=== PATIENT | female | born 1935 | race Caucasian/White ===

== ENCOUNTER 2018-11-12 17:30 | Inpatient (IN) | payer MEDICARE ==
[~2018-11-12] VITALS: Ht 152.4 cm; Wt 48.6 kg
[~2018-11-12 17:30] MED LIST: AMLODIPINE BESYL5 MG PO; ASPIRIN EC81 MG PO; LISINOPRIL40 MG PO; METFORMIN HCL1000 MG PO; METOPROLOL TART50 MG PO; NORCO 5-325 TA1 EACH PO; SERTRALINE HCL50 MG PO
[2018-11-12] MEDS ORDERED: GLYCOPYRROLATE INJ 1MG/ 5 ML SYR ONE (17:48)
[2018-11-12] MEDS ORDERED: ONDANSETRON HCL INJ 2 MG/ML VIAL ONE (17:48)
[2018-11-12] MEDS ORDERED: PHENYLEPHRINE HCL 1% 10 MG/ML VIAL ONE (17:48)
[2018-11-12] MEDS ORDERED: CEFAZOLIN SOD 1 GM VIAL ONE (17:48)
[2018-11-12] MEDS ORDERED: LIDOCAINE HCL 2% LOCAL INJ 5 ML SDV VIAL INJ ONE (17:48)
[2018-11-12] MEDS ORDERED: SEVOFLURANE INHAL SOLN 250 ML PEN BTL ONE (17:48)
[2018-11-12] MEDS ORDERED: PROPOFOL IV EMULSION 10 MG/ML 20 ML VIAL ONE (17:48)
[2018-11-12 21:00] VITALS: BP 125/62
--- NOTE | 2018-11-12 21:00 | NUR ---
Patient arrived to the unit via EMS. A&Ox4, respirations even & unlabored, no distress noted. Patient is on bedrest due to fractured left femur & left humerus, splint noted to left shoulder, per MD order 5lb bucks traction placed to left leg. Bruising to left hip, left elbow & left shoulder noted. Sacrum blanchable to touch, alleyvn foam pad placed as preventive measure. IV to right wrist 20g SL, patent & no infiltration noted. Per MD order Russo catheter placed. Patient rates pain level 4/10 to left leg.
--- NOTE | 2018-11-12 21:10 | NUR ---
Spoke w/ Dr. Rapp & Dr. Smith in regards to patient admit. Orders received and placed.
--- OUTSIDE RECORDS SUMMARY | 2018-11-12 21:33 | XMS REPORT ---
Author Author [facility] [place] Address Unknown Phone Unavailable Care Team Providers Care Diet Counselor Name Role Phone Unavailable Unavailable Payers Payer Name Policy Type Policy Number Effective Date Expiration Date Problems This patient has no known problems. Allergies, Adverse Reactions, Alerts Allergy Name Allergy Type Status Severity Reaction(s) Onset Date Inactive Date Treating Clinician Comments No Known Allergies DA Active U 2018-11-12 00:00:00 No Known Allergies DA Active U 2018-02-01 00:00:00 Medications This patient has no known medications.
[2018-11-13] VITALS (8 sets, daily range): BP systolic 107–131; BP diastolic 56–69
[2018-11-13] MEDS: HYDROCODONE/APAP 5MG-325MG TAB PO PRN ×2 (01:00→10:17)
[2018-11-13] MEDS ORDERED: SERTRALINE HCL100 MG PO (04:47)
[2018-11-13] MEDS ORDERED: ATORVASTATIN CA20 MG PO (04:47)
[2018-11-13] MEDS ORDERED: CLOPIDOGREL75 MG PO (04:47)
[2018-11-13] MEDS ORDERED: METFORMIN HCL500 MG PO (04:47)
[2018-11-13] MEDS ORDERED: LISINOPRIL10 MG PO (04:47)
[2018-11-13] MEDS ORDERED: METOPROLOL TART50 MG PO (04:47)
[2018-11-13] MEDS ORDERED: AMLODIPINE BESYL5 MG PO (04:47)
[2018-11-13] MEDS ORDERED: ASPIR 8181 MG PO (04:47)
--- NOTE | 2018-11-13 05:32 | Diagnostic Imaging Report ---
CHEST SINGLE (PORTABLE), 11/13/2018 6:00 AM Technique: CHEST SINGLE (PORTABLE) Comparison: None available. Clinical history: Pneumonia Findings: See Impression. Remote rib deformities. Impression: Limited by portable technique and rotation 1. Enlarged cardiomediastinal silhouette, poorly assessed 2. Retrocardiac opacity, suspected large hiatal hernia seen on prior chest CT. Cannot exclude superimposed or adjacent atelectasis/pneumonia. Recommend follow-up with attention to more centered positioning or upright PA and lateral. Signed by: Dr Emily Cardenas MD on 11/13/2018 5:29 AM
[2018-11-13 05:53] LABS: BASOPHILS % 0.2 % (0.0-1.0); EOSINOPHILS % 0.1 % (0.0-6.0); HEMATOCRIT 29.1 % (34.2-44.1); HEMOGLOBIN 9.4 g/dL (12.0-16.0); LYMPHOCYTES # (AUTO) 0.9 (1.0-3.2); LYMPHOCYTES % 7.1 % (18.0-39.1); MEAN CORPUSCULAR HEMOGLOBIN 28.7 pg (28-32); MEAN CORPUSCULAR HGB CONC 32.3 g/dL (31-35); MEAN CORPUSCULAR VOLUME 88.7 fL (81-99); MONOCYTES # (AUTO) 1.5 (0.2-0.8); MONOCYTES % 11.7 % (4.4-11.3); NEUTROPHILS # (AUTO) 10.1 (2.1-6.9); NEUTROPHILS % 80.3 % (38.7-80.0); PLATELET COUNT 253 x10e3/uL (140-360); RED BLOOD COUNT 3.28 x10e6/uL (3.6-5.1); RED CELL DISTRIBUTION WIDTH 14.9 % (11.7-14.4)
[2018-11-13 06:15] LABS: ALBUMIN 3.4 g/dL (3.5-5.0); ALBUMIN/GLOBULIN RATIO 1.4 (0.8-2.0); ANION GAP 14.6 mmol/L (8-16); CALCIUM 9.3 mg/dL (8.4-10.2); CREATININE, SERUM 1.11 mg/dL (0.57-1.11); POTASSIUM 4.6 mmol/L (3.5-5.1)
--- NOTE | 2018-11-13 07:00 | NUR ---
Received patient semi fowlers position, side rails upx2, call light within reach, bed alarm on. Resting with eyes closed. Arousable to verbal stimuli. Respirations even and unlabored. splint to left arm. bucks traction to LLE. Will continue to monitor.
[2018-11-13] MEDS ORDERED: CEFAZOLIN SOD 1 GM/D5W 50ML 100 ML IV ONE (08:30)
[2018-11-13] MEDS: AMLODIPINE BESYLATE 5 MG TAB PO SCH (08:59)
[2018-11-13] MEDS: METOPROLOL TARTRATE 50 MG TAB PO SCH ×2 (08:59→16:38)
[2018-11-13] MEDS: METFORMIN HCL 500 MG TAB PO SCH ×2 (08:59→16:38)
[2018-11-13] MEDS: LISINOPRIL 10 MG TAB PO SCH ×2 (09:00→16:39)
--- NOTE | 2018-11-13 09:09 | Consultation ---
DATE OF CONSULTATION: November 13, 2018 CHIEF COMPLAINT: Left hip and shoulder pain. HISTORY OF PRESENT ILLNESS: The patient is an 83-year-old lady who fell at home yesterday. She noted the immediate onset of left shoulder and left hip pain. She was initially taken to [facility]. She was transferred to [facility] as she is a previous patient of mine. PAST MEDICAL HISTORY: Please see admission H and P. She had a stroke last spring. She has had a filter placed. She was previously on Eliquis, but is now on Plavix. Her last Plavix dose was yesterday. SOCIAL HISTORY: She lives with her daughter. She has a caregiver. She uses a walker as she walks outside. She uses furniture when she walks inside the house. PHYSICAL EXAMINATION GENERAL: She is a frail 83-year-old lady who has slight confusion. She is supine in bed with 5 pounds of Correa's traction. EXTREMITIES: She has pain with any attempted passive range motion of her left hip. She is in a left shoulder immobilizer. She has pain with any attempted passive range motion of her left shoulder. Neurovascular exam is grossly normal in the left arm and left lower extremity. She has age-related diminished muscle definition and strength. LABORATORY STUDIES: X-rays show a comminuted left intertrochanteric fracture. This is on the ipsilateral side of a distal femur open reduction internal fixation with periarticular locking plate. She has a left proximal humerus fracture that appears to be roughly 3 parts. The alignment is reasonable. IMPRESSION: Pathologic fracture secondary to osteoporosis of the left proximal humerus and left hip. The findings and options were discussed with the patient and her daughter. She understands these are not secondary to any type of major mechanical trauma, but due to her osteoporosis. We recommend open reduction with internal fixation using an intramedullary hip screw on the left. I will have to use a short screw due to the distal fixation. The risks and benefits were explained. She will need wheelchair transfers postoperatively. She will not be able to bear weight due her left upper extremity. This will be a challenging recovery. I have discussed this with the patient and her daughter. They state they understand and agree to proceed. We have scheduled this for later on today. Thank you for the consultation. Job#: [id number] CHRISTOPHER
--- NOTE | 2018-11-13 09:14 | History and Physical ---
CHIEF COMPLAINT: "I fell." HISTORY OF PRESENT ILLNESS: This is an 83-year-old white woman who suffered a mechanical fall on Monday, November 12, 2018 at home. Patient was transported by emergency medical service to [facility] where x-rays revealed left humerus comminuted fracture as well as a comminuted three-part left intertrochanteric hip fracture. The family elected to transfer the patient from [facility] to [facility] where she could be evaluated by her attending, namely myself, Dr. Jean Marie Rapp, and her orthopedic surgeon namely, Dr. Abebe Smith. Patient states her pain is well controlled. The patient states that intravenous morphine given at [facility] did cause her to experience nausea and vomiting. Patient states that oral hydrocodone in the form of [place] 5 per 325 has been helpful for her pain. In June of 2018, patient underwent the Watchman procedure for atrial fibrillation. Patient is no longer on Eliquis, but she is currently on clopidogrel until December of 2018. Blood work done today revealed the hemoglobin 9.4 g/dL. Patient's white blood cell count was 12,600 with 80% segmented neutrophils. Platelets were 253,000. Patient's BUN and creatinine were 29 and 1.11 respectively. Patient sodium was 135. Potassium 4.6. AST and ALT were 56 and 69 respectively. Chest x-ray performed earlier this morning revealed a slightly enlarged cardiomediastinal silhouette with a retrocardiac opacity likely representing a hiatal hernia. The radiologist, however, stated that the pneumonia could not be ruled out. Patient denies any cough or chest congestion. Patient also states she has not been ill lately. REVIEW OF SYSTEMS: GENERAL: Patient has lost weight lately, but she cannot quantify. Denies any fever or chills. FAMILY HISTORY: Coronary artery disease in her father. SOCIAL HISTORY: She is . Lives in her house, but her adult daughter lives with patient. No history of tobacco or alcohol use. Patient is retired. ALLERGIES: NO KNOWN DRUG ALLERGIES. PAST MEDICAL HISTORY: 1. Hiatal hernia. 2. Atrial fibrillation (status post Watchman procedure in June of 2018). 3. Chronic diastolic congestive heart failure. 4. Hypertensive heart disease. 5. Stage 3 chronic kidney disease. 6. Anemia secondary to chronic disease. 7. Osteoporosis. MEDICATIONS: 1. Amlodipine 10 mg daily. 2. Aspirin 325 mg daily. 3. Atorvastatin 40 mg nightly. 4. Clopidogrel 75 mg daily. 5. Lisinopril 20 mg b.i.d. 6. Metformin 1000 b.i.d. 7. Metoprolol tartrate 50 b.i.d. 8. Sertraline 100 mg nightly. SURGICAL HISTORY: 1. Open reduction internal fixation of left supracondylar/intracondylar femur fracture in April of 2013. 2. Watchman procedure because of atrial fibrillation in June of 2018 (patient is off Eliquis and will stop clopidogrel in December 2018). PHYSICAL EXAMINATION: GENERAL: She is awake, alert, and fully oriented. Her adult daughter is at bedside. VITAL SIGNS: Blood pressure 115/60, pulse 70, respiratory rate is 18, temperature 96.4, oxygen saturation is 97% on 2 liters oxygen. Height is 5 feet 0 inches. Weight is 107 pounds. Calculated body mass index is 20. INTEGUMENT: Skin is warm and dry. Slight pallor. No jaundice or diaphoresis. No wounds or ulcerations are appreciated. HEENT: Anicteric sclerae with moist mucous membranes. NECK: Supple. CARDIOVASCULAR: Distant heart sounds. Regular rate and rhythm with an S3 gallop. LUNGS: Diminished breath sounds in the left base. ABDOMEN: Soft. Normal bowel sounds. Nontender. EXTREMITIES: The patient's left lower extremity is externally rotated and shorter than the right. She is currently on Correa's traction. NEUROLOGIC: No gross focal deficits appreciated. DIAGNOSES: 1. Left intertrochanteric hip fracture secondary to mechanical fall. 2. Left humerus fracture secondary to mechanical fall. 3. Chronic diastolic congestive heart failure. 4. Hypertensive heart disease. 5. Stage 3 chronic kidney disease. 6. Anemia secondary to chronic disease. 7. Osteoporosis. 8. Atrial fibrillation (status post Watchman procedure in June of 2018). PLAN: 1. Will hold clopidogrel and aspirin today. 2. Will clear patient for general anesthesia so her left hip fracture can be repaired. 3. Appreciate orthopedics input. 4. Pain control. 5. Resume home medications. I spent an hour in the care of this patient. Job#: [id number]
[2018-11-13] MEDS ORDERED: SODIUM CHLORIDE 0.9% 250ML 250 ML ONE (10:02)
[2018-11-13] MEDS ORDERED: DIPHENHYDRAMINE HCL INJ 50 MG/ML VIAL IM/IV PRN (13:45)
[2018-11-13] MEDS ORDERED: ACETAMINOPHEN 650 MG SUPP PR PRN (13:45)
[2018-11-13] MEDS ORDERED: ONDANSETRON HCL INJ 2 MG/ML VIAL IV PRN (13:45)
[2018-11-13] MEDS ORDERED: ZOLPIDEM TARTRATE 5 MG TAB PO PRN (13:45)
[2018-11-13] MEDS ORDERED: KETOROLAC TROMETHAMINE 30 MG/ML VIAL IV PRN (13:45)
[2018-11-13] MEDS ORDERED: PROMETHAZINE HCL (IM) 25 MG/ML VIAL INJ PRN (13:45)
[2018-11-13] MEDS ORDERED: FENTANYL CITRATE/PF 100MCG/2 ML INJ ONE ×2 (14:06→19:36)
--- NOTE | 2018-11-13 15:11 | Operative Report ---
DATE OF PROCEDURE: November 13, 2018 FURNACE SETTER: Anton Smallwood PA-C The patient was brought to the operating room for induction of anesthesia. Throughout this case, my PA's assistance was necessary for retraction of soft tissue and positioning of the extremity. This allows for efficient and technically successful execution of the operation and is considered medically necessary. PREOPERATIVE DIAGNOSIS: Left intertrochanteric fracture. POSTOPERATIVE DIAGNOSIS: Left intertrochanteric fracture. PROCEDURE: Open reduction internal fixation, left hip (intramedullary hip screw). INDICATIONS: The patient is a medically frail 83-year-old lady. She normally ambulates with a walker and has a caregiver. She fell and sustained a fracture of her left proximal humerus and left hip. This is superimposed on a healed open reduction internal fixation of her left distal femur. We have discussed the findings and options and plan on surgical fixation. The risks and benefits were explained to the patient and her daughter. They state they understand and wish to proceed. DESCRIPTION OF PROCEDURE: The patient was brought to the operating room and placed under general anesthetic. She received prophylactic antibiotics. She was positioned on the fracture table. She was placed into gentle traction. Care was taken to gently position the patient and pad all extremities. A preoperative time out was performed. A C-arm image intensifier was used to confirm satisfactory reduction. An incision was made proximal to the tip of the greater trochanter. A curved awl was used to assist in placing a guide pin down the femoral canal. The bone was very soft. A 14-mm reamer was quickly passed by hand. We placed a Biomet short intramedullary hip screw with a 130-degree proximal angle. A guide pin was placed into the femoral head. This was checked in the AP and lateral plane. This was measured at 95 mm. This was gently overreamed, and a 95 mm lag screw was placed. A 35 mm distal interlocking screw was placed. The wounds were irrigated and closed after final x-rays confirmed satisfactory reduction and positioning of the hardware. Mastisol and Steri-Strips were used to close the incisions. Estimated blood loss was 20 mL. At the end of the procedure, all needle and sponge counts were correct. Job#: [id number] DE
[2018-11-13] MEDS: CEFAZOLIN SOD 1 GM/D5W 50ML 50 ML IV SCH ×2 (16:00→21:55)
--- NOTE | 2018-11-13 16:01 | NUR ---
Educated patient on incentive spirometry usage. Voiced understanding and returned demonstration
[2018-11-13] MEDS: CELECOXIB 100 MG CAP PO SCH (16:38)
--- NOTE | 2018-11-13 17:13 | NUR ---
CM ATTEMPTED TO DO DPA HOWEVER PT IS VERY LETHARGIC POST PROCEEDURE AND UNABLE TO ANSWER QUESTIONS CM ATTEMPTED TO REACH FAMILY, SANDRA LARRY, UNSUCCESSFUL WILL F/U IN AM
[2018-11-13] MEDS: ACETAMINOPHEN 1000 MG/100 ML IV SCH (17:57)
--- NOTE | 2018-11-13 19:10 | NUR ---
Report give to oncoming nurse of patients status. No s/s of acute distress noted. Dressing to left hip clean, dry, and intact
[2018-11-13] MEDS: SERTRALINE HCL 100 MG TAB PO SCH (21:55)
[2018-11-13] MEDS: ATORVASTATIN 20 MG TAB PO SCH (21:55)
[2018-11-14] VITALS (7 sets, daily range): BP systolic 100–136; BP diastolic 52–68
--- NOTE | 2018-11-14 04:00 | NUR ---
LEFT HIP DRESSING CHANGED AT THIS TIME. NO ACTIVE BLEEDING NOTED. STERI STRIPS INTACT.
[2018-11-14] MEDS: ACETAMINOPHEN 1000 MG/100 ML IV SCH ×3 (05:30→12:00)
[2018-11-14 05:41] LABS: BASOPHILS % 0.2 % (0.0-1.0); EOSINOPHILS # (AUTO) 0.1 (0.0-0.4); EOSINOPHILS % 1.2 % (0.0-6.0); HEMATOCRIT 23.7 % (34.2-44.1); HEMOGLOBIN 7.6 g/dL (12.0-16.0); LYMPHOCYTES # (AUTO) 0.9 (1.0-3.2); LYMPHOCYTES % 9.7 % (18.0-39.1); MEAN CORPUSCULAR HEMOGLOBIN 28.6 pg (28-32); MEAN CORPUSCULAR HGB CONC 32.1 g/dL (31-35); MEAN CORPUSCULAR VOLUME 89.1 fL (81-99); MONOCYTES # (AUTO) 1.4 (0.2-0.8); MONOCYTES % 14.6 % (4.4-11.3); NEUTROPHILS # (AUTO) 6.8 (2.1-6.9); NEUTROPHILS % 73.6 % (38.7-80.0); PLATELET COUNT 189 x10e3/uL (140-360); RED BLOOD COUNT 2.66 x10e6/uL (3.6-5.1)
[2018-11-14] MEDS: CEFAZOLIN SOD 1 GM/D5W 50ML 50 ML IV SCH (05:48)
[2018-11-14 05:58] LABS: ALBUMIN 2.9 g/dL (3.5-5.0); ALBUMIN/GLOBULIN RATIO 1.3 (0.8-2.0); ANION GAP 14.3 mmol/L (8-16); CALCIUM 8.6 mg/dL (8.4-10.2); CREATININE, SERUM 1.55 mg/dL (0.57-1.11); POTASSIUM 4.3 mmol/L (3.5-5.1)
--- NOTE | 2018-11-14 06:23 | NUR ---
MC CATHETER DC'D AT THIS TIME PER MD ORDER.
--- NOTE | 2018-11-14 06:34 | NUR ---
SPOKE TO DR. GARCIA AT THIS TIME. NEW ORDERS RCV TO TRANSFUSE 2 UNITS OF BLOOD.
[2018-11-14] MEDS ORDERED: SODIUM CHLORIDE 0.9% 250ML 250 ML IV ONE (07:15)
[2018-11-14] MEDS: CELECOXIB 100 MG CAP PO SCH ×2 (08:32→17:07)
[2018-11-14] MEDS: SODIUM CHLORIDE 0.9% 1000ML 1,000 ML IV SCH ×2 (08:32→16:45)
[2018-11-14] MEDS: METOPROLOL TARTRATE 50 MG TAB PO SCH ×2 (08:37→17:08)
[2018-11-14] MEDS: AMLODIPINE BESYLATE 5 MG TAB PO SCH (08:37)
[2018-11-14] MEDS: METFORMIN HCL 500 MG TAB PO SCH ×2 (08:38→17:07)
[2018-11-14] MEDS: LISINOPRIL 10 MG TAB PO SCH ×2 (08:38→17:08)
--- NOTE | 2018-11-14 08:38 | NUR ---
Patient alert and responsive, in bed and sling to left arm and area bruised, left hip dressing in place S/P Hip repair, call light within reach, daughter in room with patient, will monitor
--- NOTE | 2018-11-14 08:40 | NUR ---
Patient's daughter refused some BP meds this morning but took some due to BP on the low side, will monitor, patient will receive blood transfusion sometime this morning, pains well managed.
[2018-11-14] MEDS: HYDROCODONE/APAP 5MG-325MG TAB PO PRN ×2 (09:43→20:54)
--- NOTE | 2018-11-14 09:44 | NUR ---
PT in to work with patient at this time, medicated for pain and will monitor
--- NOTE | 2018-11-14 12:55 | NUR ---
New IV in to Left AC 20 guage and PT working with patient now
--- NOTE | 2018-11-14 13:00 | NUR ---
Incontinence care provided as diaper wet and care provided post removal of Russo, will monitor
[2018-11-14] MEDS ORDERED: ACETAMINOPHEN 1000 MG/100 ML IV PRN (13:45)
[2018-11-14] MEDS: FUROSEMIDE INJ 10 MG/ML 2 ML VIAL IV PRN ×2 (17:03→20:55)
--- NOTE | 2018-11-14 18:27 | NUR ---
Patient started second unit of blood and tolerating well, no reaction noted at this time
[2018-11-14] MEDS: SERTRALINE HCL 100 MG TAB PO SCH (20:54)
[2018-11-14] MEDS: ATORVASTATIN 20 MG TAB PO SCH (20:54)
[2018-11-15] VITALS (8 sets, daily range): BP systolic 119–185; BP diastolic 58–75
[2018-11-15] MEDS: SODIUM CHLORIDE 0.9% 1000ML 1,000 ML IV SCH (02:58)
--- NOTE | 2018-11-15 05:00 | NUR ---
LEFT HIP DRESSING CHANGED AT THIS. STERI STRIPS INTACT. NO ACTIVE BLEEDING NOTED.
[2018-11-15 05:48] LABS: BASOPHILS # (AUTO) 0.1 (0.0-0.1); BASOPHILS % 0.5 % (0.0-1.0); EOSINOPHILS # (AUTO) 0.3 (0.0-0.4); EOSINOPHILS % 3.1 % (0.0-6.0); HEMATOCRIT 29.2 % (34.2-44.1); HEMOGLOBIN 9.7 g/dL (12.0-16.0); LYMPHOCYTES # (AUTO) 1.2 (1.0-3.2); LYMPHOCYTES % 11.7 % (18.0-39.1); MEAN CORPUSCULAR HEMOGLOBIN 28.6 pg (28-32); MEAN CORPUSCULAR HGB CONC 33.2 g/dL (31-35); MEAN CORPUSCULAR VOLUME 86.1 fL (81-99); MONOCYTES # (AUTO) 1.3 (0.2-0.8); MONOCYTES % 12.7 % (4.4-11.3); PLATELET COUNT 164 x10e3/uL (140-360); RED BLOOD COUNT 3.39 x10e6/uL (3.6-5.1); RED CELL DISTRIBUTION WIDTH 15.5 % (11.7-14.4)
[2018-11-15 06:03] LABS: ALBUMIN 2.8 g/dL (3.5-5.0); ALBUMIN/GLOBULIN RATIO 1.1 (0.8-2.0); ANION GAP 13.9 mmol/L (8-16); CALCIUM 8.4 mg/dL (8.4-10.2); CREATININE, SERUM 1.14 mg/dL (0.57-1.11); POTASSIUM 3.9 mmol/L (3.5-5.1)
--- NOTE | 2018-11-15 07:02 | NUR ---
Received patient semi fowlers position, side rails upx2, call light within reach. AAOX3 to time, person, place. Respirations even and unlabored. O2 2L NC. Sling to left arm. Dressing to left hip clean, dry, and intact. Instructed patient to use call light for assistance. Voiced understanding.
--- NOTE | 2018-11-15 08:17 | NUR ---
ORDERS FOR ACUTE REHAB WILL SPEAK WITH PT AND DTR AND GET CHOICE
[2018-11-15] MEDS: METFORMIN HCL 500 MG TAB PO SCH ×2 (09:05→18:01)
[2018-11-15] MEDS: CELECOXIB 100 MG CAP PO SCH (09:05)
[2018-11-15] MEDS: AMLODIPINE BESYLATE 5 MG TAB PO SCH (09:06)
[2018-11-15] MEDS: METOPROLOL TARTRATE 50 MG TAB PO SCH ×2 (09:06→18:01)
[2018-11-15] MEDS: LISINOPRIL 10 MG TAB PO SCH (09:06)
[2018-11-15] MEDS: HYDROCODONE/APAP 5MG-325MG TAB PO PRN (13:00)
[2018-11-15] MEDS: LISINOPRIL 20 MG TAB PO SCH (18:01)
--- NOTE | 2018-11-15 19:04 | NUR ---
WALKING ROUNDS PERFORMED, RECEIVED PT LAYING SEMI FOWLERS IN BED, AAOX3, RR EVEN AND NON-LABORED, O2 BY NC AT 2L. NO S/SX OF DISTRESS NOTED. (L) HIP DRESSING CDI. (L) ARM IN SLING NOTED TO BE BRUISED FROM (L) SHOULDER DISTAL TO (L) ELBOW. LEFT PT LAYING SEMI FOWLERS IN BED, BED IN LOW LOCKED POSITION, SIDE RAILS UPX2, CALL LIGHT AND PHONE WITHIN REACH.
--- NOTE | 2018-11-15 19:13 | NUR ---
Report given to oncoming nurse of patient's status. No s/s of acute distress noted
[2018-11-15] MEDS: SERTRALINE HCL 100 MG TAB PO SCH (20:17)
[2018-11-15] MEDS: ATORVASTATIN 40 MG TAB PO SCH (20:17)
[2018-11-16] VITALS (8 sets, daily range): BP systolic 132–161; BP diastolic 72–80
[2018-11-16 05:45] LABS: BASOPHILS % 0.3 % (0.0-1.0); EOSINOPHILS # (AUTO) 0.2 (0.0-0.4); EOSINOPHILS % 2.1 % (0.0-6.0); HEMATOCRIT 28.3 % (34.2-44.1); HEMOGLOBIN 9.2 g/dL (12.0-16.0); LYMPHOCYTES # (AUTO) 0.9 (1.0-3.2); LYMPHOCYTES % 10.1 % (18.0-39.1); MEAN CORPUSCULAR HGB CONC 32.5 g/dL (31-35); MEAN CORPUSCULAR VOLUME 86.3 fL (81-99); MONOCYTES # (AUTO) 0.9 (0.2-0.8); MONOCYTES % 10.3 % (4.4-11.3); NEUTROPHILS # (AUTO) 6.7 (2.1-6.9); NEUTROPHILS % 75.5 % (38.7-80.0); PLATELET COUNT 179 x10e3/uL (140-360); RED BLOOD COUNT 3.28 x10e6/uL (3.6-5.1); RED CELL DISTRIBUTION WIDTH 15.4 % (11.7-14.4)
--- NOTE | 2018-11-16 05:59 | NUR ---
DRESSING CHANGE PERFORMED TO (L) HIP. X3 INCISIONS NOTED TO BE CDI, STERI STRIPS INTACT. COVERED WITH STERILE DRESSING. REPOSITIONED PT IN BED.
[2018-11-16] MEDS: HYDROCODONE/APAP 5MG-325MG TAB PO PRN ×3 (06:00→15:48)
[2018-11-16 06:11] LABS: ANION GAP 13.1 mmol/L (8-16); BLOOD UREA NITROGEN 29 mg/dL (7-26); BUN/CREATININE RATIO 40 (6-25); CALCIUM 8.6 mg/dL (8.4-10.2); CARBON DIOXIDE 23 mmol/L (22-29); CHLORIDE 106 mmol/L (98-107); CREATININE, SERUM 0.73 mg/dL (0.57-1.11); EST GLOMERULAR FILTRATION RATE > 60 ML/MIN (60-); GLUCOSE 169 mg/dL (74-118); POTASSIUM 4.1 mmol/L (3.5-5.1); SODIUM 138 mmol/L (136-145)
[2018-11-16] MEDS: METFORMIN HCL 500 MG TAB PO SCH ×2 (08:00→16:15)
[2018-11-16] MEDS: METOPROLOL TARTRATE 50 MG TAB PO SCH ×2 (09:53→17:04)
[2018-11-16] MEDS: LISINOPRIL 20 MG TAB PO SCH ×2 (09:53→17:05)
[2018-11-16] MEDS: AMLODIPINE BESYLATE 10 MG TAB PO SCH (09:53)
[2018-11-16] MEDS: DOCUSATE SODIUM 100 MG CAP PO PRN ×2 (10:03→21:39)
--- NOTE | 2018-11-16 10:06 | NUR ---
Patient alert and responsive, VSS, pains well managed and tolerated all meds this morning, appetite good and improved strength, gave stool softeners this morning and no BM yet, will monitor, repositioned in bed, call light within reach.
[2018-11-16] MEDS ORDERED: BISACODYL 10 MG SUPP PR ONE (12:00)
[2018-11-16] MEDS ORDERED: MAGNESIUM HYDROXIDE 30 ML UDC PO ONE (12:00)
[2018-11-16] MEDS ORDERED: BISACODYL 5 MG TAB EC PO PRN (12:00)
--- NOTE | 2018-11-16 12:10 | NUR ---
Rounds by attending and orders for more stool softeners, administered and tolerated well, medicated for pain, incontinence care provided, will monitor
--- NOTE | 2018-11-16 15:12 | NUR ---
Soaps enema administered at this time and patient had a medium BM, PT in to see patient and assisted OOB and sitting on commode at this time, will monitor.
--- NOTE | 2018-11-16 18:14 | NUR ---
Patient was assisted back to bed with assistance, total dependence on staff for transfers and PT present to assist, call light within reach, medicated for pain, will monitor
--- NOTE | 2018-11-16 19:03 | NUR ---
WALKING ROUNDS PERFORMED, RECEIVED PT LAYING SEMI FOWLERS IN BED, AAOX3, RR EVEN AND NON-LABORED. NO S/SX OF DISTRESS NOTED. DRESSING TO 9L) HIP NOTED TO BE CDI. (L) ARM IN SLING. LEFT PT LAYING SEMI FOWLERS IN BED, BED IN LOW LOCKED POSITION, SIDE RAILS UPX2, CALL LIGHT AND PHONE WITHIN REACH.
[2018-11-16] MEDS: ATORVASTATIN 40 MG TAB PO SCH (21:39)
[2018-11-16] MEDS: SERTRALINE HCL 100 MG TAB PO SCH (21:39)
[2018-11-17] VITALS (8 sets, daily range): BP systolic 151–177; BP diastolic 77–92
[2018-11-17] MEDS: HYDROCODONE/APAP 5MG-325MG TAB PO PRN ×2 (01:35→14:48)
--- NOTE | 2018-11-17 06:20 | NUR ---
DRESSING CHANGE PERFORMED TO (L) HIP. X3 INCISIONS NOTED TO BE CDI, STERI STRIPS INTACT. COVERED WITH STERILE DRESSING. REPOSITIONED PT IN BED.
[2018-11-17 06:57] LABS: BASOPHILS % 0.2 % (0.0-1.0); EOSINOPHILS # (AUTO) 0.3 (0.0-0.4); EOSINOPHILS % 2.9 % (0.0-6.0); HEMATOCRIT 28.9 % (34.2-44.1); HEMOGLOBIN 9.6 g/dL (12.0-16.0); LYMPHOCYTES # (AUTO) 1.1 (1.0-3.2); LYMPHOCYTES % 12.3 % (18.0-39.1); MEAN CORPUSCULAR HEMOGLOBIN 29.1 pg (28-32); MEAN CORPUSCULAR HGB CONC 33.2 g/dL (31-35); MEAN CORPUSCULAR VOLUME 87.6 fL (81-99); MONOCYTES % 11.6 % (4.4-11.3); NEUTROPHILS # (AUTO) 6.2 (2.1-6.9); NEUTROPHILS % 71.1 % (38.7-80.0); PLATELET COUNT 195 x10e3/uL (140-360); RED CELL DISTRIBUTION WIDTH 15.3 % (11.7-14.4)
[2018-11-17 07:16] LABS: ANION GAP 12.2 mmol/L (8-16); BLOOD UREA NITROGEN 22 mg/dL (7-26); BUN/CREATININE RATIO 31 (6-25); CALCIUM 8.9 mg/dL (8.4-10.2); CARBON DIOXIDE 25 mmol/L (22-29); CHLORIDE 103 mmol/L (98-107); EST GLOMERULAR FILTRATION RATE > 60 ML/MIN (60-); GLUCOSE 144 mg/dL (74-118); POTASSIUM 4.2 mmol/L (3.5-5.1); SODIUM 136 mmol/L (136-145)
[2018-11-17] MEDS: METFORMIN HCL 500 MG TAB PO SCH ×2 (08:00→17:00)
[2018-11-17] MEDS: LISINOPRIL 20 MG TAB PO SCH ×2 (09:00→17:00)
[2018-11-17] MEDS: AMLODIPINE BESYLATE 10 MG TAB PO SCH (09:00)
[2018-11-17] MEDS: METOPROLOL TARTRATE 50 MG TAB PO SCH ×2 (09:00→17:00)
--- NOTE | 2018-11-17 19:15 | NUR ---
Patient assisted to commode and had a large loose stool and incontinence care provided, report given to on coming nurse
--- NOTE | 2018-11-17 19:45 | NUR ---
RECEIVED PATIENT IN BED. ARM SLING TO LEFT ARM INTACT. NO COMPLAINT OF PAIN.
[2018-11-17] MEDS: SERTRALINE HCL 100 MG TAB PO SCH (21:00)
[2018-11-17] MEDS: ATORVASTATIN 40 MG TAB PO SCH (21:00)
[2018-11-17] MEDS: DOCUSATE SODIUM 100 MG CAP PO PRN (21:00)
[2018-11-18] VITALS: BP 155/91
[2018-11-18] MEDS: HYDROCODONE/APAP 5MG-325MG TAB PO PRN ×2 (02:20→10:25)
[2018-11-18 05:31] LABS: BASOPHILS % 0.4 % (0.0-1.0); EOSINOPHILS # (AUTO) 0.3 (0.0-0.4); EOSINOPHILS % 2.9 % (0.0-6.0); HEMATOCRIT 30.1 % (34.2-44.1); HEMOGLOBIN 9.8 g/dL (12.0-16.0); LYMPHOCYTES # (AUTO) 1.1 (1.0-3.2); LYMPHOCYTES % 12.6 % (18.0-39.1); MEAN CORPUSCULAR HEMOGLOBIN 28.5 pg (28-32); MEAN CORPUSCULAR HGB CONC 32.6 g/dL (31-35); MEAN CORPUSCULAR VOLUME 87.5 fL (81-99); MONOCYTES % 11.4 % (4.4-11.3); NEUTROPHILS # (AUTO) 6.2 (2.1-6.9); NEUTROPHILS % 69.2 % (38.7-80.0); PLATELET COUNT 197 x10e3/uL (140-360); RED BLOOD COUNT 3.44 x10e6/uL (3.6-5.1); RED CELL DISTRIBUTION WIDTH 15.2 % (11.7-14.4)
[2018-11-18 05:48] LABS: ANION GAP 13.1 mmol/L (8-16); BLOOD UREA NITROGEN 19 mg/dL (7-26); BUN/CREATININE RATIO 28 (6-25); CARBON DIOXIDE 24 mmol/L (22-29); CHLORIDE 102 mmol/L (98-107); CREATININE, SERUM 0.68 mg/dL (0.57-1.11); EST GLOMERULAR FILTRATION RATE > 60 ML/MIN (60-); GLUCOSE 168 mg/dL (74-118); POTASSIUM 4.1 mmol/L (3.5-5.1); SODIUM 135 mmol/L (136-145)
--- NOTE | 2018-11-18 06:58 | NUR ---
REPORT GIVEN TO ONCOMING NURSE.
[2018-11-18 07:17] LABS: EOSINOPHILS % (MANUAL) 3 % (0-7); LYMPHOCYTES % (MANUAL) 13 % (19-48); METAMYELOCYTES % (MANUAL) 3 % (0-0); MONOCYTES % (MANUAL) 7 % (3.4-9.0); NEUTROPHILS % (MANUAL) 74 % (40-74); NUCLEATED RED BLOOD CELLS 1
[2018-11-18 07:18] LABS: ANISOCYTOSIS SLIGHT; HYPOCHROMASIA SLIGHT; PLATELET ESTIMATE ADEQUATE; PLATELET MORPHOLOGY COMMENT NORMAL; RBC MORPHOLOGY COMMENT NORMAL
[2018-11-18] MEDS: METFORMIN HCL 500 MG TAB PO SCH (08:00)
[2018-11-18 08:33] VITALS: BP 180/95
[2018-11-18] MEDS: LISINOPRIL 20 MG TAB PO SCH (09:00)
[2018-11-18] MEDS: METOPROLOL TARTRATE 50 MG TAB PO SCH (09:32)
[2018-11-18] MEDS: AMLODIPINE BESYLATE 10 MG TAB PO SCH (09:32)
[2018-11-18] MEDS ORDERED: MAGNESIUM HYDROXIDE 30 ML UDC PO PRN (09:45)
--- NOTE | 2018-11-18 10:07 | NUR ---
Call to Rehab and Tonya busy in a room and call call back
--- NOTE | 2018-11-18 10:10 | NUR ---
PT AND DTR CHOSE [facility] CHOICE LETTER SIGNED AND ON CHART TJ NOTIFIED OF CONSULT PT ACCEPTED TO [facility] MOT INITIATED AND IN PACKET DAUGHTER VERY EMOTIONAL AND CRYING SHE IS AFRAID PT WILL HAVE TO GO TO A PENITENTIARY GAVE HER A SR GUIDANCE BOOK AND ENCOURAGED HER TO START LOOKING FOR SNF'S NOW IN CASE PT NEEDS ONE AFTER REHAB
--- NOTE | 2018-11-18 10:22 | NUR ---
Patient alert and responsive, report given to Tonya at [facility] rehab at this time
[2018-11-18 10:44] VITALS: BP 180/95
--- NOTE | 2018-11-18 10:46 | NUR ---
Patient alert and responsive, rechecked BP post medication administration and lower, orders for discharge and med reconciliation done by charge nurse with MD. Patient medicated for pain, report given to nurse at [facility], IV lines removed and dressings applied. Patient transported to [facility] via ambulance at this time.
--- NOTE | 2018-11-18 12:17 | NUR ---
Dictated DC summary: [id number]
--- NOTE | 2018-11-18 12:43 | Discharge Summary ---
ADMITTING DIAGNOSES 1. Left intertrochanteric hip fracture secondary to mechanical fall. 2. Left proximal humerus fracture secondary to mechanical fall. 3. Chronic diastolic congestive heart failure. 4. Hypertensive heart disease. 5. Acute renal failure secondary to acute tubular necrosis. 6. Anemia secondary to chronic disease. 7. Osteoporosis. 8. Atrial fibrillation (status post Watchman procedure in June 2018). DISCHARGE DIAGNOSES 1. Status post left hip open reduction and internal fixation with intramedullary hip screw placement. 2. Acute renal failure secondary to acute tubular necrosis, resolved. 3. Post hemorrhagic anemia secondary to surgery. 4. Status post blood transfusion (2 units). 5. Chronic diastolic congestive heart failure. 6. Atrial fibrillation (status post Watchman procedure in June 2018). 7. Hypertensive heart disease. 8. Osteoporosis. HOSPITAL COURSE: This is an 83-year-old white woman who suffered a mechanical fall on the day of admission that resulted in a left intertrochanteric fracture as well as a proximal left humerus fracture. The patient was seen by orthopedic surgeon, namely Dr. Abebe Vanegas, who stated that the left proximal humerus fracture was nonoperable. The patient did undergo successful left hip open reduction and internal fixation to repair the intertrochanteric fracture. During this procedure, the patient underwent intramedullary screw placement. The patient tolerated the procedure quite well. The patient's postoperative therapy was somewhat compromised by the fact that she has a left proximal humerus fracture. The patient suffered acute renal failure secondary to acute tubular necrosis during this hospitalization, but it resolved with intravenous fluids. The patient's BUN and creatinine did get as high as 33 and 1.55 respectively. On the day of discharge, the patient's BUN and creatinine were 19 and 0.69 respectively. During this hospitalization, the patient was also transfused 2 units of packed red blood cells because her hemoglobin did get as low at 7.6 g/dL. On the day of discharge, the patient's hemoglobin was 9.8 g/dL. The decision was made to transfer the patient to an inpatient rehabilitation unit, namely [facility] in [place], [place]. The patient's condition at discharge was stable. DISCHARGE MEDICATIONS 1. Clopidogrel 75 mg daily. 2. Aspirin 81 mg daily. 3. [place] 5 per 325 one every 4 hours p.r.n. pain. 4. Amlodipine 10 mg daily. 5. Metoprolol tartrate 50 mg b.i.d. 6. Lisinopril 20 mg b.i.d. 7. Metformin 500 mg b.i.d. 8. Atorvastatin 40 mg each bedtime. 9. Docusate 100 mg b.i.d. 10. Milk of Magnesia 30 mL p.o. b.i.d. p.r.n. constipation. 11. Sertraline 100 mg each bedtime. 12. Dulcolax 10 mg by mouth daily as needed for constipation. 13. Promazine 12.5 mg p.o. q.6 h. p.r.n. nausea and vomiting. 14. Zolpidem 5 mg each bedtime p.r.n. insomnia. FOLLOWUP INSTRUCTIONS: The patient was instructed to follow up with Dr. Abebe Vanegas in the next 3 weeks. The patient will follow up with her primary care physician, namely myself, Dr. Jean Marie Garcia, after discharge from the inpatient rehabilitation facility. JEAN MARIE GARCIA MD Job#: [id number] cc:ABEBE VANEGAS MD
[2018-11-18] MEDS ORDERED: DOCUSATE SODIUM 100 MG CAP PO SCH (17:00)
[2018-11-19] MEDS ORDERED: CLOPIDOGREL BISULFATE 75 MG TAB PO SCH (09:00)
== END 2018-11-18 10:50 | DRG 480 ==
LOC: MED/SURG 21:28
PROVIDERS: ADMIT Internal Medicine; ATTEND Internal Medicine
PROC: 0QS706Z Reposition Left Upper Femur with Intramedullary Internal Fixation Device, Open Approach (ICD-10-PCS; 2018-11-13)
PROC: 30233N1 Transfusion of Nonautologous Red Blood Cells into Peripheral Vein, Percutaneous Approach (ICD-10-PCS; principal; 2018-11-14)
DX: M80.052A Age-related osteoporosis with current pathological fracture, left femur, initial encounter for fracture (principal); N17.0 Acute kidney failure with tubular necrosis; D62 Acute posthemorrhagic anemia; I13.0 Hypertensive heart and chronic kidney disease with heart failure and stage 1 through stage 4 chronic kidney disease, or unspecified chronic kidney disease; I50.32 Chronic diastolic (congestive) heart failure; N17.9 Acute kidney failure, unspecified; M80.022A Age-related osteoporosis with current pathological fracture, left humerus, initial encounter for fracture; N18.3 Chronic kidney disease, stage 3 (moderate); D63.8 Anemia in other chronic diseases classified elsewhere; I48.91 Unspecified atrial fibrillation; K44.9 Diaphragmatic hernia without obstruction or gangrene; Z79.84 Long term (current) use of oral hypoglycemic drugs; Z79.82 Long term (current) use of aspirin; Z86.73 Personal history of transient ischemic attack (TIA), and cerebral infarction without residual deficits; E11.22 Type 2 diabetes mellitus with diabetic chronic kidney disease; K59.00 Constipation, unspecified
CPT/HCPCS: 36415; 71045; 76000; 80048; 80053; 82948; 83880; 85025; 86850; 86900; 86920; 93005; 97139; C1713; J0690; J1940; J2001; J2370; J2405; J7030; J7050; P9016

== ENCOUNTER 2019-03-02 19:49 | Emergency (ER) | payer MEDICARE ==
[~2019-03-02] VITALS: Ht 152.4 cm; Wt 48.5 kg
[~2019-03-02 19:49] MED LIST changes: +ASPIR 8181 MG PO; +ATORVASTATIN CA20 MG PO; +CLOPIDOGREL75 MG PO; +LISINOPRIL10 MG PO; +METFORMIN HCL500 MG PO; +SERTRALINE HCL100 MG PO
--- NOTE | 2019-03-02 21:37 | Diagnostic Imaging Report ---
EXAMINATION: Head CT without contrast. HISTORY:Fall. COMPARISON:Report of CT brain from 06/07/2015, images of prior study not available for comparison at the time of interpretation. TECHNIQUE: Multidetector axial images were obtained from the foramen magnum to the vertex without contrast. The images were reconstructed using brain and bone algorithms. Thin section brain images were reformatted into coronal and sagittal planes. Dose modulation, iterative reconstruction, and/or weight based adjustment of the mA/kV was utilized to reduce the radiation dose to as low as reasonably achievable. Intravenous contrast: None IMAGE QUALITY: Acceptable. FINDINGS: Skull/scalp: No lytic or blastic. lesions. No surgical changes. Parenchyma: Nonspecific supratentorial white matter patchy hypodensity are likely related to small vessel ischemic changes. Focal hypodensity in left lentiform nucleus represents old lacunar infarct. No acute hemorrhage, mass or acute major vascular territorial infarct. Arteries: No density suggestive of thrombosis. Atherosclerotic calcification in bilateral carotid siphon and V4 segment of vertebral arteries. Dural sinuses: No abnormal density suggestive of thrombosis. Ventricles: No hydrocephalus or displacement. Extra-axial spaces: No abnormal density. Brain volume: Generalized predominantly bilateral frontoparietal cerebral volume loss. Craniocervical junction: No mass, Chiari malformation, or basilar invagination. Sella: No mass. Paranasal/mastoid sinuses: Mild mucosal thickening in bilateral ethmoid sinuses. IMPRESSION: No acute intracranial abnormality. Mild to moderate supratentorial white matter microvascular ischemic changes. Generalized predominantly bilateral frontoparietal cerebral volume loss. Signed by: Dr. Jennifer Barton M.D. on 03/02/2019 9:34 PM
--- NOTE | 2019-03-02 21:43 | Diagnostic Imaging Report ---
History: Fall. Comparison studies: None Technique: Axial images were obtained through the cervical region.. Coronal and sagittal images reconstructed from the axial data. Dose modulation, iterative reconstruction, and/or weight based adjustment of the mA/kV was utilized to reduce the radiation dose to as low as reasonably achievable. Intravenous contrast: None Findings: Fractures: None. Soft tissue injuries: None. Atlantoaxial articulation: Intact. Alignment: Normal lordosis. No scoliosis. Cervicomedullary junction: No abnormalities. The foramen magnum is patent. Soft tissues: No abnormalities. Vertebrae: Diffuse osseous demineralization. No fractures, infection or neoplasm. Degenerative changes: C4-C5: Mild degenerative disc disease. Posterior disc osteophyte complex and 1.5 mm grade 1 retrolisthesis results in mild canal stenosis. Severe right and mild left foraminal stenosis due to facet and uncovertebral arthrosis. C5-C6: Mild to moderate degenerative disc disease. Posterior disc osteophyte complex without significant canal stenosis. Mild right and moderate left foraminal stenosis due to facet and uncovertebral arthrosis. C6-C7: Moderate degenerative disc disease with trace vacuum phenomenon. Mild left foraminal stenosis due to facet and uncovertebral arthrosis. Incidental finding: Heterogeneous appearance of the thyroid gland with 1.1 cm hypodense nodule in left lobe of thyroid gland with peripheral rim of calcification. IMPRESSION: 1. No acute cervical spine fracture or dislocation. 2. Ligament, spinal cord and or vascular abnormalities cannot be excluded on the basis of this examination. 3. Cervical spondylosis as detailed above. Signed by: Dr. Jennifer Barton M.D. on 03/02/2019 9:39 PM
--- NOTE | 2019-03-02 21:44 | Diagnostic Imaging Report ---
Exam: Ribs History: pain Comparison: None. Findings: Nondisplaced left upper rib fractures. Severe bone demineralization limits evaluation. Impression: Nondisplaced left upper rib fractures. Signed by: Dr. Jose Lamb M.D. on 03/02/2019 9:40 PM
--- NOTE | 2019-03-02 21:48 | Diagnostic Imaging Report ---
Exam: pelvis 1 view History: pain Comparison: None. Findings: No acute fracture or malalignment. Remote left proximal femur fracture status post fixation. No abnormal soft tissue calcification or soft tissue defect. Impression: No displaced acute fracture Signed by: Dr. Jose Lamb M.D. on 03/02/2019 9:44 PM
--- NOTE | 2019-03-02 21:54 | Diagnostic Imaging Report ---
Exam: Left femur 2 views History: Pain Comparison: None. Findings: No acute fracture. Status post fixation of the left femur with intramedullary natalie and femoral neck screw for prior intertrochanteric fracture with incomplete bridging of the lesser trochanter. Additional plates screw construct for prior distal femur fracture with complete healing. Impression: No acute osseous abnormality Signed by: Dr. Jose Lamb M.D. on 03/02/2019 9:50 PM
== END 2019-03-02 22:39 | disposition home or self-care (01) ==
LOC: ER 19:49
DX: S00.03XA Contusion of scalp, initial encounter (principal); S20.212A Contusion of left front wall of thorax, initial encounter; S80.02XA Contusion of left knee, initial encounter; W07.XXXA Fall from chair, initial encounter; Y92.008 Other place in unspecified non-institutional (private) residence as the place of occurrence of the external cause; I10 Essential (primary) hypertension; E11.9 Type 2 diabetes mellitus without complications; E78.5 Hyperlipidemia, unspecified
CPT/HCPCS: 70450; 71101; 72125; 72170; 99283

== ENCOUNTER 2021-01-28 20:28 | Inpatient (IN) | payer MEDICARE ==
[~2021-01-28] VITALS: Ht 152.4 cm; Wt 40.8 kg
[2021-01-28] MEDS ORDERED: HYDROCODONE/APAP 7.5MG-325MG 1 EA TAB PO ONE (20:45)
[2021-01-28] MEDS ORDERED: ONDANSETRON HCL INJ 2MG/ML 2ML 2 MG/ML VIAL IV PRN (23:30)
[2021-01-28] MEDS ORDERED: MORPHINE SULFATE INJ 4 MG/ML INJ 1ML IV PRN (23:30)
[2021-01-29] VITALS (10 sets, daily range): BP systolic 117–146; BP diastolic 66–84
[2021-01-29] MEDS ORDERED: LISINOPRIL-HCT1 EAC2 PO (02:58)
[2021-01-29] MEDS ORDERED: ASPIRIN CHEW81 MG PO (02:58)
[2021-01-29] MEDS ORDERED: AMLODIPINE BESYL5 MG PO (02:58)
[2021-01-29] MEDS ORDERED: COLACE100 MG PO (02:58)
[2021-01-29] MEDS ORDERED: SERTRALINE HCL100 MG PO ×2 (02:58→10:28)
[2021-01-29] MEDS ORDERED: ACETAMINOPHEN650 M1 PO (02:58)
[2021-01-29] MEDS ORDERED: B12 ACTIVE1000 MCG PO (02:58)
[2021-01-29] MEDS ORDERED: CLONIDINE HCL0.1 MG PO (03:02)
[2021-01-29] MEDS ORDERED: DILTIAZEM 24HR180 M1 PO (03:02)
[2021-01-29] MEDS ORDERED: VITAMIN D3 PO (10:12)
[2021-01-29] MEDS ORDERED: ULTRAM50 MG PO (10:28)
[2021-01-29] MEDS ORDERED: ASPIRIN ENTERI325 MG PO (10:28)
[2021-01-29] MEDS ORDERED: HYDROCHLOROTHIA25 MG (10:28)
[2021-01-29] MEDS ORDERED: VITAMIN B-121000 MC1 PO (10:28)
[2021-01-29] MEDS ORDERED: LISINOPRIL10 MG PO (10:28)
[2021-01-29] MEDS ORDERED: CLONIDINE HCL 0.1 MG TAB PO PRN (11:45)
[2021-01-29] MEDS ORDERED: ACETAMINOPHEN 325 MG TAB PO PRN (11:45)
[2021-01-29] MEDS: METOPROLOL TARTRATE 50 MG TAB PO SCH ×2 (11:52→17:12)
[2021-01-29] MEDS: METFORMIN HCL 500 MG TAB PO SCH ×2 (11:52→17:12)
[2021-01-29] MEDS: TRAMADOL HCL 50 MG TAB PO SCH ×3 (11:57→23:09)
[2021-01-29 12:32] LABS: BASOPHILS # (AUTO) 0.1 (0.0-0.1); BASOPHILS % 0.5 % (0.0-1.0); EOSINOPHILS # (AUTO) 0.1 (0.0-0.4); EOSINOPHILS % 0.5 % (0.0-6.0); HEMATOCRIT 40.9 % (34.2-44.1); HEMOGLOBIN 13.8 g/dL (12.0-16.0); LYMPHOCYTES # (AUTO) 1.2 (1.0-3.2); LYMPHOCYTES % 11.3 % (18.0-39.1); MEAN CORPUSCULAR HEMOGLOBIN 31.7 pg (28-32); MEAN CORPUSCULAR HGB CONC 33.7 g/dL (31-35); MEAN CORPUSCULAR VOLUME 93.8 fL (81-99); MONOCYTES # (AUTO) 0.8 (0.2-0.8); MONOCYTES % 7.5 % (4.4-11.3); NEUTROPHILS # (AUTO) 8.7 (2.1-6.9); NEUTROPHILS % 79.5 % (38.7-80.0); PLATELET COUNT 212 x10e3/uL (140-360); RED BLOOD COUNT 4.36 x10e6/uL (3.6-5.1); RED CELL DISTRIBUTION WIDTH 12.8 % (11.7-14.4)
[2021-01-29 12:52] LABS: ALANINE AMINOTRANSFERASE 21 IU/L (0-55); ALBUMIN 3.7 g/dL (3.5-5.0); ALBUMIN/GLOBULIN RATIO 1.2 (0.8-2.0); ALKALINE PHOSPHATASE 90 IU/L (40-150); BLOOD UREA NITROGEN 18 mg/dL (7-26); BUN/CREATININE RATIO 22 (6-25); CALCIUM 9.7 mg/dL (8.4-10.2); CARBON DIOXIDE 27 mmol/L (22-29); CHLORIDE 94 mmol/L (98-107); CREATININE, SERUM 0.82 mg/dL (0.57-1.11); EST GLOMERULAR FILTRATION RATE > 60 ML/MIN (60-); GLUCOSE 273 mg/dL (74-118); SODIUM 135 mmol/L (136-145)
[2021-01-29 13:48] LABS: CLARITY,URINE CLEAR (CLEAR); COLOR,URINE YELLOW (YELLOW); KETONES,URINE TRACE (NEGATIVE); LEUKOCYTE ESTERASE ,URINE NEGATIVE (NEGATIVE); NITRITE,URINE NEGATIVE (NEGATIVE); PROTEIN,URINE DIPSTICK 1+ (NEGATIVE); URINE UROBILINOGEN 1 mg/dL (0.2 - 1)
[2021-01-29 14:01] LABS: BACTERIA,URINE RARE /HPF; EPITHELIAL CELLS,URINE FEW /LPF; RBC,URINE 0-5 /HPF (0-5); WBC,URINE (MAN) 0-5 /HPF (0-5)
[2021-01-29] MEDS ORDERED: METOPROLOL TARTRATE 50 MG TAB PO SCH (17:00)
[2021-01-29] MEDS ORDERED: METFORMIN HCL 500 MG TAB PO SCH (17:00)
[2021-01-29] MEDS ORDERED: DILTIAZEM HCL 180 MG CAP ER PO SCH (17:00)
[2021-01-29] MEDS: DOCUSATE SODIUM 100 MG CAP PO SCH (17:12)
[2021-01-29] MEDS: HYDROCHLOROTHIAZIDE 25 MG TAB PO SCH (17:12)
[2021-01-29] MEDS: LISINOPRIL 10 MG TAB PO SCH (17:13)
[2021-01-29] MEDS: SERTRALINE HCL 100 MG TAB PO SCH (20:50)
[2021-01-29] MEDS: DILTIAZEM HCL 180 MG CAP ER PO SCH (20:50)
[2021-01-29] MEDS ORDERED: CEFTRIAXONE SOD 1 GM/50 ML BAG IV SCH (21:45)
[2021-01-29] MEDS ORDERED: CEFTRIAXONE SOD 1 GM in DEXTROSE 5% 50ML 50 ML IV SCH (22:00)
[2021-01-29] MEDS ORDERED: SODIUM CHLORIDE 0.9% 50ML 50 ML ONE (22:08)
[2021-01-29] MEDS ORDERED: CEFTRIAXONE SOD 1 GM VIAL ONE (22:08)
[2021-01-29] MEDS ORDERED: SODIUM CHLORIDE 0.9% 250ML 250 ML ONE (22:09)
[2021-01-29] MEDS: LEVOFLOXACIN 250MG/D5W 50ML 50 ML IV SCH (23:09)
[2021-01-30] VITALS (8 sets, daily range): BP systolic 124–138; BP diastolic 58–80
[2021-01-30] MEDS: TRAMADOL HCL 50 MG TAB PO SCH ×4 (05:17→19:20)
[2021-01-30 06:29] LABS: BASOPHILS # (AUTO) 0.1 (0.0-0.1); BASOPHILS % 0.4 % (0.0-1.0); EOSINOPHILS # (AUTO) 0.1 (0.0-0.4); EOSINOPHILS % 0.5 % (0.0-6.0); HEMATOCRIT 39.9 % (34.2-44.1); HEMOGLOBIN 13.3 g/dL (12.0-16.0); LYMPHOCYTES # (AUTO) 1.3 (1.0-3.2); LYMPHOCYTES % 11.1 % (18.0-39.1); MEAN CORPUSCULAR HEMOGLOBIN 31.8 pg (28-32); MEAN CORPUSCULAR HGB CONC 33.3 g/dL (31-35); MEAN CORPUSCULAR VOLUME 95.5 fL (81-99); MONOCYTES % 9.2 % (4.4-11.3); NEUTROPHILS # (AUTO) 8.8 (2.1-6.9); NEUTROPHILS % 77.8 % (38.7-80.0); PLATELET COUNT 201 x10e3/uL (140-360); RED BLOOD COUNT 4.18 x10e6/uL (3.6-5.1)
[2021-01-30 06:55] LABS: ANION GAP 17.9 mmol/L (8-16); CALCIUM 9.4 mg/dL (8.4-10.2); CREATININE, SERUM 0.94 mg/dL (0.57-1.11); POTASSIUM 3.9 mmol/L (3.5-5.1)
[2021-01-30] MEDS: METFORMIN HCL 500 MG TAB PO SCH ×2 (07:59→16:23)
[2021-01-30] MEDS: ASPIRIN 325 MG TAB EC PO SCH (07:59)
[2021-01-30] MEDS: HYDROCHLOROTHIAZIDE 25 MG TAB PO SCH ×2 (07:59→16:23)
[2021-01-30] MEDS: DOCUSATE SODIUM 100 MG CAP PO SCH ×2 (07:59→16:23)
[2021-01-30] MEDS: CHOLECALCIFEROL 1,000 UNIT TAB PO SCH (08:01)
[2021-01-30] MEDS: CYANOCOBALAMIN 1,000 MCG TAB PO SCH (08:01)
[2021-01-30] MEDS: AMLODIPINE BESYLATE 5 MG TAB PO SCH (08:01)
[2021-01-30] MEDS: METOPROLOL TARTRATE 50 MG TAB PO SCH ×2 (08:01→16:24)
[2021-01-30] MEDS: LISINOPRIL 10 MG TAB PO SCH ×2 (08:01→16:24)
[2021-01-30] MEDS: CEFTRIAXONE SOD 1 GM in SODIUM CHLORIDE 0.9% 50ML 50 ML IV SCH (12:13)
[2021-01-30] MEDS: LEVOFLOXACIN 250MG/D5W 50ML 50 ML IV SCH (20:23)
[2021-01-30] MEDS: SERTRALINE HCL 100 MG TAB PO SCH (20:23)
[2021-01-30] MEDS: DILTIAZEM HCL 180 MG CAP ER PO SCH (20:23)
[2021-01-31] VITALS (8 sets, daily range): BP systolic 123–143; BP diastolic 69–90
[2021-01-31] MEDS: CEFTRIAXONE SOD 1 GM in SODIUM CHLORIDE 0.9% 50ML 50 ML IV SCH ×3 (00:02→23:29)
[2021-01-31] MEDS: TRAMADOL HCL 50 MG TAB PO SCH ×5 (00:02→23:29)
[2021-01-31 05:07] LABS: BASOPHILS # (AUTO) 0.1 (0.0-0.1); BASOPHILS % 0.5 % (0.0-1.0); EOSINOPHILS % 0.2 % (0.0-6.0); HEMATOCRIT 41.6 % (34.2-44.1); HEMOGLOBIN 13.7 g/dL (12.0-16.0); LYMPHOCYTES # (AUTO) 1.4 (1.0-3.2); MEAN CORPUSCULAR HEMOGLOBIN 31.3 pg (28-32); MEAN CORPUSCULAR HGB CONC 32.9 g/dL (31-35); MONOCYTES # (AUTO) 1.3 (0.2-0.8); MONOCYTES % 10.3 % (4.4-11.3); NEUTROPHILS # (AUTO) 9.4 (2.1-6.9); NEUTROPHILS % 76.9 % (38.7-80.0); PLATELET COUNT 213 x10e3/uL (140-360); RED BLOOD COUNT 4.38 x10e6/uL (3.6-5.1); RED CELL DISTRIBUTION WIDTH 12.9 % (11.7-14.4)
[2021-01-31 05:38] LABS: ANION GAP 17.5 mmol/L (8-16); BLOOD UREA NITROGEN 24 mg/dL (7-26); BUN/CREATININE RATIO 27 (6-25); CALCIUM 9.6 mg/dL (8.4-10.2); CARBON DIOXIDE 29 mmol/L (22-29); CHLORIDE 92 mmol/L (98-107); CREATININE, SERUM 0.89 mg/dL (0.57-1.11); EST GLOMERULAR FILTRATION RATE > 60 ML/MIN (60-); GLUCOSE 179 mg/dL (74-118); POTASSIUM 3.5 mmol/L (3.5-5.1); SODIUM 135 mmol/L (136-145)
[2021-01-31] MEDS ORDERED: POTASSIUM CHLORIDE 10MEQ EA PO ONE (07:00)
[2021-01-31] MEDS ORDERED: FUROSEMIDE INJ 10 MG/ML 4 ML VIAL IV ONE (07:00)
[2021-01-31] MEDS ORDERED: LEVALBUTEROL HCL SOLN NEBU 0.63 MG/3 ML NEB INH SCH (07:30)
[2021-01-31] MEDS ORDERED: IPRATROPIUM BROMIDE 0.02% 2.5 ML NEB NEB SCH (07:30)
[2021-01-31] MEDS: AMLODIPINE BESYLATE 5 MG TAB PO SCH ×4 (09:00→14:43)
[2021-01-31] MEDS: METOPROLOL TARTRATE 50 MG TAB PO SCH ×2 (09:17→17:12)
[2021-01-31] MEDS: ASPIRIN 325 MG TAB EC PO SCH (09:17)
[2021-01-31] MEDS: METFORMIN HCL 500 MG TAB PO SCH ×2 (09:17→17:10)
[2021-01-31] MEDS: DOCUSATE SODIUM 100 MG CAP PO SCH ×2 (09:17→17:10)
[2021-01-31] MEDS: CYANOCOBALAMIN 1,000 MCG TAB PO SCH (09:18)
[2021-01-31] MEDS: CHOLECALCIFEROL 1,000 UNIT TAB PO SCH (09:18)
[2021-01-31] MEDS: LISINOPRIL 10 MG TAB PO SCH ×2 (09:18→17:12)
[2021-01-31] MEDS ORDERED: CEFTRIAXONE SOD 1 GM VIAL ONE ×2 (13:15→23:26)
[2021-01-31] MEDS ORDERED: SODIUM CHLORIDE 0.9% 50ML 50 ML ONE ×2 (13:16→23:26)
[2021-01-31] MEDS: LEVOFLOXACIN 250MG/D5W 50ML 50 ML IV SCH (21:07)
[2021-01-31] MEDS: DILTIAZEM HCL 180 MG CAP ER PO SCH (21:07)
[2021-01-31] MEDS: SERTRALINE HCL 100 MG TAB PO SCH (21:07)
[2021-02-01] VITALS (8 sets, daily range): BP systolic 120–153; BP diastolic 68–95
[2021-02-01 05:09] LABS: BASOPHILS # (AUTO) 0.1 (0.0-0.1); BASOPHILS % 0.8 % (0.0-1.0); EOSINOPHILS # (AUTO) 0.1 (0.0-0.4); EOSINOPHILS % 1.4 % (0.0-6.0); HEMATOCRIT 39.4 % (34.2-44.1); LYMPHOCYTES # (AUTO) 1.2 (1.0-3.2); LYMPHOCYTES % 13.6 % (18.0-39.1); MONOCYTES % 11.1 % (4.4-11.3); NEUTROPHILS # (AUTO) 6.3 (2.1-6.9); NEUTROPHILS % 71.8 % (38.7-80.0); PLATELET COUNT 193 x10e3/uL (140-360); RED BLOOD COUNT 4.19 x10e6/uL (3.6-5.1); RED CELL DISTRIBUTION WIDTH 13.1 % (11.7-14.4)
[2021-02-01 05:23] LABS: ANION GAP 12.7 mmol/L (8-16); BLOOD UREA NITROGEN 24 mg/dL (7-26); BUN/CREATININE RATIO 29 (6-25); CALCIUM 9.1 mg/dL (8.4-10.2); CARBON DIOXIDE 29 mmol/L (22-29); CHLORIDE 97 mmol/L (98-107); CREATININE, SERUM 0.83 mg/dL (0.57-1.11); EST GLOMERULAR FILTRATION RATE > 60 ML/MIN (60-); GLUCOSE 176 mg/dL (74-118); POTASSIUM 3.7 mmol/L (3.5-5.1); SODIUM 135 mmol/L (136-145)
[2021-02-01] MEDS: TRAMADOL HCL 50 MG TAB PO SCH ×3 (05:36→17:26)
[2021-02-01] MEDS ORDERED: FUROSEMIDE INJ 10 MG/ML 4 ML VIAL IV ONE (08:00)
[2021-02-01] MEDS: DOCUSATE SODIUM 100 MG CAP PO SCH ×2 (08:59→17:21)
[2021-02-01] MEDS: METFORMIN HCL 500 MG TAB PO SCH ×2 (08:59→17:21)
[2021-02-01] MEDS: ASPIRIN 325 MG TAB EC PO SCH (08:59)
[2021-02-01] MEDS: CHOLECALCIFEROL 1,000 UNIT TAB PO SCH (09:00)
[2021-02-01] MEDS: METOPROLOL TARTRATE 50 MG TAB PO SCH ×2 (09:00→17:22)
[2021-02-01] MEDS: CYANOCOBALAMIN 1,000 MCG TAB PO SCH (09:00)
[2021-02-01] MEDS: LISINOPRIL 10 MG TAB PO SCH ×2 (09:00→17:22)
[2021-02-01] MEDS ORDERED: ONDANSETRON HCL 4 MG ORAL DISINTEGRATING TAB PO PRN (09:15)
[2021-02-01] MEDS ORDERED: CEFTRIAXONE SOD 1 GM VIAL ONE ×2 (12:08→22:27)
[2021-02-01] MEDS ORDERED: SODIUM CHLORIDE 0.9% 50ML 50 ML ONE ×2 (12:08→22:27)
[2021-02-01] MEDS: CEFTRIAXONE SOD 1 GM in SODIUM CHLORIDE 0.9% 50ML 50 ML IV SCH (12:09)
[2021-02-01] MEDS: DILTIAZEM HCL 180 MG CAP ER PO SCH (21:00)
[2021-02-01] MEDS: SERTRALINE HCL 100 MG TAB PO SCH (21:00)
[2021-02-01] MEDS: LEVOFLOXACIN 250MG/D5W 50ML 50 ML IV SCH (21:15)
[2021-02-02] MEDS: CEFTRIAXONE SOD 1 GM in SODIUM CHLORIDE 0.9% 50ML 50 ML IV SCH (00:10)
[2021-02-02 01:10] VITALS: BP 135/90
[2021-02-02 05:28] VITALS: BP 127/86
[2021-02-02] MEDS: TRAMADOL HCL 50 MG TAB PO SCH ×3 (05:35→11:58)
[2021-02-02 06:11] LABS: BASOPHILS # (AUTO) 0.1 (0.0-0.1); BASOPHILS % 0.6 % (0.0-1.0); EOSINOPHILS # (AUTO) 0.2 (0.0-0.4); EOSINOPHILS % 2.1 % (0.0-6.0); HEMATOCRIT 40.9 % (34.2-44.1); HEMOGLOBIN 13.3 g/dL (12.0-16.0); LYMPHOCYTES # (AUTO) 1.3 (1.0-3.2); LYMPHOCYTES % 14.6 % (18.0-39.1); MEAN CORPUSCULAR HEMOGLOBIN 30.4 pg (28-32); MEAN CORPUSCULAR HGB CONC 32.5 g/dL (31-35); MEAN CORPUSCULAR VOLUME 93.6 fL (81-99); MONOCYTES # (AUTO) 1.1 (0.2-0.8); MONOCYTES % 12.2 % (4.4-11.3); NEUTROPHILS # (AUTO) 6.2 (2.1-6.9); NEUTROPHILS % 69.1 % (38.7-80.0); PLATELET COUNT 197 x10e3/uL (140-360); RED BLOOD COUNT 4.37 x10e6/uL (3.6-5.1); RED CELL DISTRIBUTION WIDTH 13.2 % (11.7-14.4)
[2021-02-02 06:37] LABS: ALANINE AMINOTRANSFERASE 30 IU/L (0-55); ALBUMIN 3.2 g/dL (3.5-5.0); ALKALINE PHOSPHATASE 80 IU/L (40-150); BLOOD UREA NITROGEN 25 mg/dL (7-26); BUN/CREATININE RATIO 30 (6-25); CARBON DIOXIDE 30 mmol/L (22-29); CHLORIDE 95 mmol/L (98-107); CREATININE, SERUM 0.82 mg/dL (0.57-1.11); EST GLOMERULAR FILTRATION RATE > 60 ML/MIN (60-); GLUCOSE 168 mg/dL (74-118); SODIUM 137 mmol/L (136-145)
[2021-02-02 08:07] VITALS: BP 138/94
[2021-02-02] MEDS ORDERED: POTASSIUM CHLORIDE 20 MEQ TAB CR PO ONE ×3 (08:30→12:30)
[2021-02-02 08:52] VITALS: BP 138/94
[2021-02-02] MEDS: CYANOCOBALAMIN 1,000 MCG TAB PO SCH (09:00)
[2021-02-02] MEDS: ASPIRIN 325 MG TAB EC PO SCH (09:00)
[2021-02-02] MEDS: DOCUSATE SODIUM 100 MG CAP PO SCH (09:00)
[2021-02-02] MEDS: CHOLECALCIFEROL 1,000 UNIT TAB PO SCH (09:00)
[2021-02-02] MEDS: LISINOPRIL 10 MG TAB PO SCH (09:00)
[2021-02-02] MEDS: METOPROLOL TARTRATE 50 MG TAB PO SCH (09:00)
[2021-02-02] MEDS: METFORMIN HCL 500 MG TAB PO SCH (09:00)
[2021-02-02 12:19] VITALS: BP 197/125
== END 2021-02-02 12:50 | DRG 177 ==
LOC: ER 20:35 → ERHOLD 23:34 → MED/SURG2 01-29 01:16 → OBSVTOIN 01-29 11:40
PROVIDERS: ADMIT Internal Medicine; ATTEND Internal Medicine
DX: J15.6 Pneumonia due to other Gram-negative bacteria (principal); I50.33 Acute on chronic diastolic (congestive) heart failure; I48.20 Chronic atrial fibrillation, unspecified; M48.55XA Collapsed vertebra, not elsewhere classified, thoracolumbar region, initial encounter for fracture; Z68.1 Body mass index [BMI] 19.9 or less, adult; M54.9 Dorsalgia, unspecified; I11.0 Hypertensive heart disease with heart failure; Z79.01 Long term (current) use of anticoagulants; R63.6 Underweight; M47.815 Spondylosis without myelopathy or radiculopathy, thoracolumbar region; M48.05 Spinal stenosis, thoracolumbar region; Z20.822 Contact with and (suspected) exposure to COVID-19; Z66 Do not resuscitate; Z86.73 Personal history of transient ischemic attack (TIA), and cerebral infarction without residual deficits
CPT/HCPCS: 36415; 71045; 72128; 72131; 72192; 80048; 80053; 81001; 82948; 83880; 85025; 87086; 93005; 93306; 97139; 99251; 99284; G0378; J0696; J1940; J1956; J2270; J2405; J7050; U0002